=== PATIENT | female | born 1950 | race Caucasian/White ===

== ENCOUNTER 2016-07-29 10:33 | Emergency (ER) | payer MEDICARE, OTHER ==
[2016-07-29] MEDS ORDERED: Sodium Chloride 0.9% 10 ML Syringe FLUSH PRN (11:08)
[2016-07-29] MEDS ORDERED: HYDROmorphone 0.5 MG/0.5 ML Syringe IVPUSH ONE (11:10)
[2016-07-29] MEDS ORDERED: Ondansetron 4 MG/2 ML SDV IVPUSH ONE (11:10)
--- NOTE | 2016-07-29 11:13 | EDM.PDOC ---
ED HPI GI/ABDOMINAL - General Chief Complaint: Abdominal Pain Stated Complaint: ABDOMINAL PAIN Time Seen by Provider: 07/29/16 11:10 Source: Reports: Patient, Family, Old records, RN notes reviewed History Limitations: Reports: No limitations - History of Present Illness INITIAL COMMENTS - FREE TEXT/NARRATIVE: 66-year-old female presents emergency department with a complaint of abdominal pain, she states been ill for about 4 days has had fevers and chills pain is predominantly in the left lower quadrant she's never had a colonoscopy has had her gallbladder out still passing gas normal stool pattern denies blood in her stool no problems with urination. Was evaluated in the clinic yesterday urgent care felt to have a urinary tract infection started on ciprofloxacin cultures pending - Related Data Allergies/ADRs: Allergies Allergy/AdvReac Type Severity Reaction Status Date / Time No Known Allergies Allergy Verified 01/14/16 08:00 Home Meds: Home Meds Aspirin [Ecotrin] 81 mg PO DAILY 01/14/16 [History] Cholecalciferol (Vitamin D3) [Vitamin D3] 2,000 unit PO DAILY 01/14/16 [History] Cyanocobalamin (Vitamin B-12) [Vitamin B-12] 2,000 mcg PO DAILY 01/14/16 [ History] Losartan [Cozaar] 50 mg PO DAILY 01/14/16 [History] Susan-3 Fatty Acids/Fish Oil [Fish Oil 1,000 mg Softgel] 1 each PO DAILY [History] Dicyclomine [Bentyl] 20 mg PO QIDACANDBED #30 tablet 07/29/16 [Rx] metroNIDAZOLE [Flagyl] 500 mg PO Q8H #30 tab 07/29/16 [Rx] Past Medical History - Infectious Disease History Infectious Disease History: Reports: Chicken pox - Past Surgical History GI Surgical History: Reports: Cholecystectomy Dermatological Surgical History: Reports: Other (see below) Social & Family History - Tobacco Use Smoking Status *Q: Current Some Day Smoker Years of Tobacco use: 40 Packs/Tins Daily: 0.5 - Caffeine Use Caffeine Use: Reports: Coffee - Recreational Drug Use Recreational Drug Use: No ED ROS GENERAL - Review of Systems Review Of Systems: See Below Constitutional: Reports: fever, chills HEENT: Reports: No symptoms Respiratory: Reports: No Symptoms Cardiovascular: Reports: No symptoms GI/Abdominal: Reports: Abdominal pain, Flatus. Denies: Bloody stool, Diarrhea, Nausea, Vomiting : Reports: no symptoms Skin: Reports: no symptoms Neurological: Reports: No Symptoms ED EXAM, GI/ABD - Physical Exam Exam: See Below Text/Narrative:: General: Female, not in any distress, alert and oriented x3 HEENT: head is atraumatic normocephalic, eyes pupils equal round reactive to light, sclera clear no conjunctivitis appreciated. Ears tympanic membranes clear and navarrete landmarks and light reflex are present bilaterally canals are clear. Nose no septal deviation, nares are clear, no blood present. Mouth mucosa is moist and pink no erythema or exudate noted in soft palate, tongue is midline uvula is midline, dentition is intact. Neck: Supple no thyromegaly no tracheal deviation. Nodes: Cervical nodes subclavicular nodes nontender no palpable lymphadenopathy noted. Lungs: clear to auscultation bilaterally with symmetrical respirations, no adventitious noise appreciated. CV: Regular rate and rhythm S1 and S2 appreciated no murmurs rubs or gallops noted. Abdomen: Soft, tender to palpation left lower quadrant, no palpable masses or organomegaly appreciated, no distention no guarding bowel sounds are present, . Neuro: Cranial nerves II through XII grossly intact Skin: Warm and dry, intact Extremities: No lower extremity edema appreciated, pedal pulse is +2. Course - Vital Signs Last Recorded V/S: Last Vital Signs Temp 98.7 F 07/29/16 12:24 Pulse 76 07/29/16 12:24 Resp 15 07/29/16 12:24 BP 120/66 07/29/16 12:24 Pulse Ox 96 07/29/16 12:24 - Orders/Labs/Meds Orders: Active Orders 24 hr Category Date Time Status Peripheral IV Care [RC] . DIRECTED Care 07/29/16 11:09 Active Iopamidol [Isovue-300 (61%)] Med 07/29/16 11:18 Active 140 ml IV . DIRECTED PRN Sodium Chloride 0.9% [Normal Saline] 1,000 ml Med 07/29/16 11:15 Active IV ASDIRECTED Sodium Chloride 0.9% [Normal Saline] 85 ml Med 07/29/16 11:30 Active IV ASDIRECTED Sodium Chloride 0.9% [Saline Flush] Med 07/29/16 11:08 Active 10 ml FLUSH ASDIRECTED PRN Peripheral IV Insertion Adult [OM.PC] Urgent Oth 07/29/16 11:08 Ordered Medication Orders Sodium Chloride (Normal Saline) 1,000 mls @ 500 mls/hr IV ASDIRECTED MARLEN Last Admin: 07/29/16 11:22 Dose: 500 mls/hr Sodium Chloride (Normal Saline) 85 mls @ 3.5 mls/sec IV ASDIRECTED MARLEN Last Admin: 07/29/16 11:54 Dose: 3.5 mls/sec Iopamidol (Isovue-300 (61%)) 140 ml IV . DIRECTED PRN PRN Reason: RADIOLOGY EXAM Stop: 07/30/16 11:19 Last Admin: 07/29/16 11:54 Dose: 140 ml Sodium Chloride (Saline Flush) 10 ml FLUSH ASDIRECTED PRN PRN Reason: Keep Vein Open Last Admin: 07/29/16 11:21 Dose: 10 ml Labs: Laboratory Tests 07/29/16 07/29/16 07/29/16 Range/Units 11:18 11:18 11:18 WBC 17.8 H (4.5-11.0) K/uL RBC 4.01 (3.30-5.50) M/uL Hgb 12.3 (12.0-15.0) g/dL Hct 38.3 (36.0-48.0) % MCV 96 (80-98) fL MCH 31 (27-31) pg MCHC 32 (32-36) % Plt Count 372 (150-400) K/uL Neut % (Auto) 78 H (36-66) % Lymph % (Auto) 10 L (24-44) % [place] % (Auto) 11 H (2-6) % Eos % (Auto) 1 L (2-4) % Baso % (Auto) 1 (0-1) % Sodium 140 (140-148) mmol/L Potassium 3.8 (3.6-5.2) mmol/L Chloride 106 (100-108) mmol/L Carbon Dioxide 26 (21-32) mmol/L Anion Gap 8.1 (5.0-14.0) mmol/L BUN 10 (7-18) mg/dL Creatinine 0.8 (0.6-1.0) mg/dL Est Cr Clr Drug Dosing 62.24 mL/min Estimated GFR (MDRD) > 60 (>60) BUN/Creatinine Ratio Not Reportable Glucose 108 H (74-106) mg/dL Lactic Acid 1.3 (0.4-2.0) mmol/L Calcium 8.7 (8.5-10.1) mg/dL Total Bilirubin 0.7 (0.2-1.0) mg/dL AST 14 L (15-37) U/L ALT 29 (12-78) U/L Alkaline Phosphatase 104 (46-116) U/L Total Protein 7.8 (6.4-8.2) g/dL Albumin 2.8 L (3.4-5.0) g/dL Globulin 5.0 H (2.3-3.5) g/dL Albumin/Globulin Ratio 0.6 L (1.2-2.2) Lipase 87 (73-393) U/L Urine Color Urine Appearance Urine pH (4.5-8.0) Ur Specific [place] (1.008-1.030) Urine Protein (NEGATIVE) mg/dL Urine Glucose (UA) (NEGATIVE) mg/dL Urine Ketones (NEGATIVE) mg/dL Urine Occult Blood (NEGATIVE) Urine Nitrite (NEGATIVE) Urine Bilirubin (NEGATIVE) Urine Urobilinogen (NORMAL) mg/dL Ur Leukocyte Esterase (NEGATIVE) Urine RBC (0-5) Urine WBC (0-5) Ur Epithelial Cells Amorphous Sediment Urine Bacteria Urine Mucus 07/29/16 Range/Units 11:26 WBC (4.5-11.0) K/uL RBC (3.30-5.50) M/uL Hgb (12.0-15.0) g/dL Hct (36.0-48.0) % MCV (80-98) fL MCH (27-31) pg MCHC (32-36) % Plt Count (150-400) K/uL Neut % (Auto) (36-66) % Lymph % (Auto) (24-44) % [place] % (Auto) (2-6) % Eos % (Auto) (2-4) % Baso % (Auto) (0-1) % Sodium (140-148) mmol/L Potassium (3.6-5.2) mmol/L Chloride (100-108) mmol/L Carbon Dioxide (21-32) mmol/L Anion Gap (5.0-14.0) mmol/L BUN (7-18) mg/dL Creatinine (0.6-1.0) mg/dL Est Cr Clr Drug Dosing mL/min Estimated GFR (MDRD) (>60) BUN/Creatinine Ratio Glucose (74-106) mg/dL Lactic Acid (0.4-2.0) mmol/L Calcium (8.5-10.1) mg/dL Total Bilirubin (0.2-1.0) mg/dL AST (15-37) U/L ALT (12-78) U/L Alkaline Phosphatase (46-116) U/L Total Protein (6.4-8.2) g/dL Albumin (3.4-5.0) g/dL Globulin (2.3-3.5) g/dL Albumin/Globulin Ratio (1.2-2.2) Lipase (73-393) U/L Urine Color Yellow Urine Appearance Slightly cloudy Urine pH 5.0 (4.5-8.0) Ur Specific [place] 1.020 (1.008-1.030) Urine Protein Negative (NEGATIVE) mg/dL Urine Glucose (UA) Normal (NEGATIVE) mg/dL Urine Ketones Negative (NEGATIVE) mg/dL Urine Occult Blood Moderate (NEGATIVE) Urine Nitrite Negative (NEGATIVE) Urine Bilirubin Small (NEGATIVE) Urine Urobilinogen 1 (NORMAL) mg/dL Ur Leukocyte Esterase Negative (NEGATIVE) Urine RBC 5-10 H (0-5) Urine WBC 0-5 (0-5) Ur Epithelial Cells Many Amorphous Sediment Not seen Urine Bacteria Moderate Urine Mucus Moderate Meds: Medications Generic Name Dose Route Start Last Admin Trade Name Freq PRN Reason Stop Dose Admin Sodium Chloride 1,000 mls @ 500 mls/hr 07/29/16 11:15 07/29/16 11:22 Normal Saline IV 500 mls/hr ASDIRECTED MARLEN Administration Sodium Chloride 85 mls @ 3.5 mls/sec 07/29/16 11:30 07/29/16 11:54 Normal Saline IV 3.5 mls/sec ASDIRECTED MARLEN Administration Iopamidol 140 ml 07/29/16 11:18 07/29/16 11:54 Isovue-300 (61%) IV 07/30/16 11:19 140 ml . DIRECTED PRN Administration RADIOLOGY EXAM Sodium Chloride 10 ml 07/29/16 11:08 07/29/16 11:21 Saline Flush FLUSH 10 ml ASDIRECTED PRN Administration Keep Vein Open Discontinued Medications Generic Name Dose Route Start Last Admin Trade Name Swetha PRN Reason Stop Dose Admin Hydromorphone HCl 0.5 mg 07/29/16 11:10 07/29/16 11:18 Dilaudid IVPUSH 07/29/16 11:11 0.5 mg ONETIME ONE Administration Ondansetron HCl 4 mg 07/29/16 11:10 07/29/16 11:18 Zofran IVPUSH 07/29/16 11:11 4 mg ONETIME ONE Administration Sodium Chloride 10 ml 07/29/16 11:18 07/29/16 11:54 Saline Flush FLUSH 07/29/16 11:19 10 ml ONETIME ONE Administration Departure - Departure Time of Disposition: 13:21 Disposition: Home, Self-Care 01 Condition: good Clinical Impression: Diverticulitis Qualifiers: Diverticulitis site: large intestine Diverticulitis bleeding: without bleeding Diverticulitis complication: without perforation or abscess Qualified Code(s): K57.32 - Diverticulitis of large intestine without perforation or abscess without bleeding Prescriptions: Dicyclomine [Bentyl] 20 mg PO QIDACANDBED #30 tablet metroNIDAZOLE [Flagyl] 500 mg PO Q8H #30 tab Forms: ED Department Discharge Additional Instructions: Take full course of antibiotics, use the dicyclomine to help with the abdominal spasms. Please followup with your primary care provider in 3-5 days if not better, please call return to the emergency department with worsening of symptoms. - My Orders Last 24 Hours: My Active Orders 07/29/16 11:08 Sodium Chloride 0.9% [Saline Flush] 10 ml FLUSH ASDIRECTED PRN Peripheral IV Insertion Adult [OM.PC] Urgent 07/29/16 11:09 Peripheral IV Care [RC] . DIRECTED 07/29/16 11:15 Sodium Chloride 0.9% [Normal Saline] 1,000 ml IV ASDIRECTED 07/29/16 11:18 Iopamidol [Isovue-300 (61%)] 140 ml IV . DIRECTED PRN 07/29/16 11:30 Sodium Chloride 0.9% [Normal Saline] 85 ml IV ASDIRECTED - Assessment/Plan Last 24 Hours: My Active Orders 07/29/16 11:08 Sodium Chloride 0.9% [Saline Flush] 10 ml FLUSH ASDIRECTED PRN Peripheral IV Insertion Adult [OM.PC] Urgent 07/29/16 11:09 Peripheral IV Care [RC] . DIRECTED 07/29/16 11:15 Sodium Chloride 0.9% [Normal Saline] 1,000 ml IV ASDIRECTED 07/29/16 11:18 Iopamidol [Isovue-300 (61%)] 140 ml IV . DIRECTED PRN 07/29/16 11:30 Sodium Chloride 0.9% [Normal Saline] 85 ml IV ASDIRECTED Plan: Assessment Acuity = acute Site and laterality = diverticulitis Etiology = secondary to diverticular disease Manifestations = abdominal pain, fever Location of injury = home Lab values = WBC elevated at 17.8 consistent with leukocytosis, albumin low at 2.8 consistent hypoalbuminemia urinalysis reveals 5-[address] scan described diverticulitis about Plan She is currently taking ciprofloxacin will add metronidazole 500 mg Q8 hours x7 days in combination with dicyclomine help with the abdominal cramping, have her followup with her primary care in 3-5 days if no improvement Patient was in agreement with the plan all questions were answered, they were instructed to return to the emergency department or call for worsening symptoms. This note was dictated using [employer] voice recognition software please call with any questions.
[2016-07-29] MEDS ORDERED: Sodium Chloride 0.9% 1,000 ML IV SCH (11:15)
[2016-07-29] MEDS ORDERED: Iopamidol 612 MG/ML 150 ML Bottle IV PRN (11:18)
[2016-07-29] MEDS ORDERED: Sodium Chloride 0.9% 10 ML Syringe FLUSH ONE (11:18)
[2016-07-29 12:25] VITALS: BP 120/66
--- NOTE | 2016-07-29 13:14 | CT ---
Abdomen Pelvis w Cont HISTORY: LLQ pain Axial spiral enhanced CT scan of the abdomen and pelvis was obtained using IV contrast only. Coronal reconstructions were obtained. There are no prior exams for comparison. FINDINGS: Heart size is within normal limits. Lung bases are clear. No focal amount of the liver, sp dee, pancreas, adrenal glands, or kidneys is identified. Gallbladder is surgically absent. There is no biliary duct dilatation. Multiple diverticuli are seen in the descending and sigmoid colon. There is colon wall thickening an d pericolonic fat stranding proximal sigmoid colon along with enhancement of a diverticulum. Finding s are suspicious for acute diverticulitis. Underlying malignancy is not excluded. There is a small a mount of fluid adjacent to the proximal sigmoid colon. Perforation or organized abscess are not seen . Follow-up is recommended. No other colon abnormality is seen. Small bowel loops are nondistended. I see no pelvic, retroperito samantha, or mesenteric adenopathy. Minimal free fluid can be seen in the lower pelvis. IMPRESSION: Probable acute diverticulitis proximal sigmoid colon as described above. Underlying abby gnancy cannot be excluded. There is a small amount of fluid adjacent to the proximal sigmoid colon. I see no perforation or organized abscess at this time. Recommend clinical correlation and follow-up . Findings were discussed with Dr. Hardingr in the Emergency Department at 1300 hours. Total DLP 1380 mGycm
[2016-07-29] MEDS ORDERED: HYDROmorphone 1 MG/ML Syringe IVPUSH ONE (13:24)
== END 2016-07-29 14:00 | disposition home or self-care (01) ==
LOC: JP.ED 10:33
DX: K57.32 Diverticulitis of large intestine without perforation or abscess without bleeding (principal); F17.210 Nicotine dependence, cigarettes, uncomplicated; Z79.82 Long term (current) use of aspirin; Z79.899 Other long term (current) drug therapy; Z90.49 Acquired absence of other specified parts of digestive tract
CPT/HCPCS: 36415; 74177; 80053; 81001; 83605; 83690; 85025; 96361; 96374; 96375; 99284; J1170; J2405; J7030; J7040; J7050

== ENCOUNTER 2016-08-19 08:26 | Day surgery (SDC) | payer MEDICARE, OTHER ==
[2016-08-19] MEDS ORDERED: fentaNYL 100 MCG/2 ML SDV ONE (10:59)
[2016-08-19] MEDS ORDERED: Midazolam 1 MG/ML 2 ML SDV ONE (10:59)
[2016-08-19] MEDS ORDERED: Propofol 200 MG/20 ML SDV ONE (10:59)
[2016-08-19] MEDS ORDERED: Lactated Ringers 1,000 ML IV SCH (11:30)
[2016-08-19] MEDS ORDERED: Glucagon,Human Recombinant 1 MG Vial ONE (12:27)
[2016-08-19 14:04] VITALS: BP 161/94
--- NOTE | 2016-08-20 07:39 | OR ---
DATE OF PROCEDURE: 08/19/2016 PREOPERATIVE DIAGNOSIS: Colon cancer screening, recent diverticulitis. POSTOPERATIVE DIAGNOSIS: Diverticulosis, small right colon polyp, recent diverticulitis. PROCEDURE: Colonoscopy to the cecum with biopsy resection of right colon polyp. ANESTHESIA: IV anesthesia with monitored anesthesia care. INDICATIONS: This 66-year-old white female is referred for a colonoscopy. She has never had a colonoscopic exam. She does have a recent episode of what is thought to have been diverticulitis, this is all resolved. I counseled her for a colonoscopy with possible biopsy and/or polypectomy including risks and alternatives, and she gave her informed consent to proceed. DESCRIPTION OF PROCEDURE: The patient was placed in the left lateral decubitus position. IV anesthesia was administered by the Anesthesia Service. Time-out was held. A rectal exam was performed, which was unremarkable. The flexible video Olympus colonoscope was introduced through her anus, up her rectum, and out her colon all way to the cecum. There was a lot of spasm of in the sigmoid and left colon areas. We did give the patient IV glucagon. En route to the cecum in the right colon, we saw a small polyp which was removed with multiple bites of the biopsy forceps. There was also a lot of spasm in the left and sigmoid colon area. After the cecum was reached, the scope was slowly withdrawn examining the mucosa throughout. No additional mucosal abnormalities were noted. The scope was retroflexed in rectum with the distal rectum appearing unremarkable. The scope was straightened and removed. She tolerated the procedure well. Cedric Acosta MD /[id number] [facility]DPeters[facility]
== END 2016-08-19 14:21 | disposition home or self-care (01) ==
LOC: JP.SDS 08:26
PROVIDERS: ATTEND Surgery
PROC: 0DBK8ZX Excision of Ascending Colon, Via Natural or Artificial Opening Endoscopic, Diagnostic (ICD-10-PCS; principal; 2016-08-19)
DX: Z12.11 Encounter for screening for malignant neoplasm of colon (principal); D12.2 Benign neoplasm of ascending colon; K57.30 Diverticulosis of large intestine without perforation or abscess without bleeding
CPT/HCPCS: 45380; J1610; J2250; J2704; J3010; 88305

== ENCOUNTER 2017-10-28 12:43 | Inpatient (IN) | payer MEDICARE, OTHER ==
[2017-10-28] MEDS ORDERED: Sodium Chloride 0.9% 10 ML Syringe FLUSH PRN ×3 (13:21→18:09)
[2017-10-28] MEDS ORDERED: Iopamidol 612 MG/ML 150 ML Bottle IV SCH (13:30)
--- NOTE | 2017-10-28 14:44 | CT ---
Abdomen Pelvis w Cont INDICATION: diverticulitis TECHNIQUE: CT images of the abdomen and pelvis performed. Coronal reformatted images obtained. IV contrast only Dosage reduction and iterative reconstruction techniques employed. COMPARISON: CT 07/29/2016 FINDINGS: 5.7 x 5.5 x 4.0 cm peridiverticular abscess containing fluid, a few air bubbles, an enha ncing rim adjacent to the sigmoid colon and abutting the posterior aspect of the anterior flexed uter us. Also small amount of fluid adjacent to the left ovary which could also be related to infection. D iverticulosis in the remainder of the colon but no other evidence of diverticulitis. No free air. Fat ty infiltration of the liver. Gallbladder surgically absent. Spleen, pancreas, adrenal glands, and ki dneys unremarkable. Ureters and urinary bladder clear. No ascites. Abdominal aorta normal caliber. De generative change in the spine. IMPRESSION: Well-developed 5.7 cm sigmoid peridiverticular abscess. Due to its deep location with overlying structures, this is not amenable to CT-guided percutaneous drainage.
--- NOTE | 2017-10-28 15:16 | EDM.PDOC ---
ED HPI GENERAL MEDICAL PROBLEM - General Chief Complaint: Abdominal Pain Stated Complaint: ABD PAIN Time Seen by Provider: 10/28/17 13:15 Source of Information: Reports: Patient History Limitations: Reports: No Limitations - History of Present Illness INITIAL COMMENTS - FREE TEXT/NARRATIVE: Lower abd pain for 4 days just like when she had diverticulitis previously. No fever. No vomiting or diarrhea. lower abdomen Pain Score (Numeric/FACES): 5 - Related Data Allergies Allergy/AdvReac Type Severity Reaction Status Date / Time No Known Allergies Allergy Verified 10/28/17 12:58 Home Meds: Home Meds Cholecalciferol (Vitamin D3) [Vitamin D3] 2,000 unit PO DAILY 01/14/16 [History] Cyanocobalamin (Vitamin B-12) [Vitamin B-12] 2,000 mcg PO DAILY 01/14/16 [ History] Losartan [Cozaar] 50 mg PO DAILY 01/14/16 [History] [place]-3 Fatty Acids/Fish Oil [Fish Oil 1,000 mg Softgel] 1 each PO DAILY [History] Past Medical History Cardiovascular History: Reports: Hypertension Gastrointestinal History: Reports: Diverticulosis [employer] History: Reports: Musculoskeletal History: Reports: Back Pain, Chronic Dermatologic History: Reports: None - Infectious Disease History Infectious Disease History: Reports: None - Past Surgical History Cardiovascular Surgical History: Reports: None GI Surgical History: Reports: Cholecystectomy Social & Family History - Tobacco Use Smoking Status *Q: Never Smoker - Caffeine Use Caffeine Use: Reports: Coffee - Recreational Drug Use Recreational Drug Use: No ED ROS GENERAL - Review of Systems Review Of Systems: ROS reveals no pertinent complaints other than HPI. ED EXAM, GI/ABD - Physical Exam Exam: See Below Exam Limited By: Uncooperative General Appearance: WD/WN, No Apparent Distress Eyes: Bilateral: Normal Appearance Throat/Mouth: Normal Oropharynx Respiratory/Chest: Lungs Clear Cardiovascular: Regular Rate, Rhythm GI/Abdominal Exam: Normal Bowel Sounds, Soft, Tender (moderate LLQ tend) Extremities: Normal Inspection Neurological: Alert, Oriented Course - Vital Signs Last Recorded V/S: Last Vital Signs Temp 36.4 C 10/28/17 12:55 Pulse 80 10/28/17 14:44 Resp 12 10/28/17 14:44 BP 144/69 H 10/28/17 14:44 Pulse Ox 98 10/28/17 14:44 - Orders/Labs/Meds Orders: Active Orders 24 hr Category Date Time Status UA W/MICROSCOPIC [URIN] Urgent Lab 10/28/17 13:44 Ordered Iopamidol [Isovue-300 (61%)] Med 10/28/17 13:30 Active 144 ml IV . DIRECTED Sodium Chloride 0.9% [Saline Flush] Med 10/28/17 13:21 Active 10 ml FLUSH ASDIRECTED PRN Sodium Chloride 0.9% [Saline Flush] Med 10/28/17 13:25 Active 10 ml FLUSH ONETIME PRN Saline Lock Insert [OM.PC] Urgent Oth 10/28/17 13:20 Ordered Medication Orders Iopamidol (Isovue-300 (61%)) 144 ml IV . DIRECTED MARLEN Last Admin: 10/28/17 14:14 Dose: 144 ml Sodium Chloride (Saline Flush) 10 ml FLUSH ASDIRECTED PRN PRN Reason: Keep Vein Open Sodium Chloride (Saline Flush) 10 ml FLUSH ONETIME PRN PRN Reason: PER RADIOLOGY PROTOCOL Labs: Laboratory Tests 10/28/17 10/28/17 10/28/17 Range/Units 13:30 13:30 13:44 WBC 15.4 H (4.5-11.0) K/uL RBC 4.23 (3.30-5.50) M/uL Hgb 13.2 (12.0-15.0) g/dL Hct 40.3 (36.0-48.0) % MCV 95 (80-98) fL MCH 31 (27-31) pg MCHC 33 (32-36) % Plt Count 360 (150-400) K/uL Neut % (Auto) 74 H (36-66) % Lymph % (Auto) 16 L (24-44) % [place] % (Auto) 8 H (2-6) % Eos % (Auto) 1 L (2-4) % Baso % (Auto) 0 (0-1) % Sodium 141 (140-148) mmol/L Potassium 3.6 (3.6-5.2) mmol/L Chloride 106 (100-108) mmol/L Carbon Dioxide 28 (21-32) mmol/L Anion Gap 7.5 (5.0-14.0) mmol/L BUN 12 (7-18) mg/dL Creatinine 0.9 (0.6-1.0) mg/dL Est Cr Clr Drug Dosing 52.38 mL/min Estimated GFR (MDRD) > 60 (>60) Glucose 119 H (74-106) mg/dL Calcium 8.6 (8.5-10.1) mg/dL Total Bilirubin 0.8 (0.2-1.0) mg/dL AST 21 (15-37) U/L ALT 29 (12-78) U/L Alkaline Phosphatase 109 (46-116) U/L Total Protein 7.0 (6.4-8.2) g/dL Albumin 2.7 L (3.4-5.0) g/dL Globulin 4.3 H (2.3-3.5) g/dL Albumin/Globulin Ratio 0.6 L (1.2-2.2) Urine Color Yellow Urine Appearance Cloudy Urine pH 5.0 (4.5-8.0) Ur Specific [place] 1.020 (1.008-1.030) Urine Protein Trace (NEGATIVE) mg/dL Urine Glucose (UA) Normal (NEGATIVE) mg/dL Urine Ketones Negative (NEGATIVE) mg/dL Urine Occult Blood Moderate (NEGATIVE) Urine Nitrite Negative (NEGATIVE) Urine Bilirubin Small (NEGATIVE) Urine Urobilinogen 4 (NORMAL) mg/dL Ur Leukocyte Esterase Small (NEGATIVE) Urine RBC 0-5 (0-5) Urine WBC 0-5 (0-5) Ur Epithelial Cells Moderate Amorphous Sediment Not seen Urine Bacteria Moderate Urine Mucus Not seen Meds: Medications Generic Name Dose Route Start Last Admin Trade Name Freq PRN Reason Stop Dose Admin Iopamidol 144 ml 10/28/17 13:30 10/28/17 14:14 Isovue-300 (61%) IV 144 ml . DIRECTED MARLEN Administration Sodium Chloride 10 ml 10/28/17 13:21 Saline Flush FLUSH ASDIRECTED PRN Keep Vein Open Sodium Chloride 10 ml 10/28/17 13:25 Saline Flush FLUSH ONETIME PRN PER RADIOLOGY PROTOCOL Discontinued Medications Generic Name Dose Route Start Last Admin Trade Name Freq PRN Reason Stop Dose Admin Sodium Chloride 84 mls @ 3 mls/sec 10/28/17 13:25 10/28/17 14:14 Normal Saline IV 10/28/17 13:26 3 mls/sec ONETIME ONE Administration - Radiology Interpretation Free Text/Narrative:: CT shows 5 cm peridiverticular abscess in lower abd. Too deep for CT guided needle asp - Re-Assessments/Exams Free Text/Narrative Re-Assessment/Exam: 10/28/17 15:16 Dr Salvador lugo see. Departure - Discharge Information Referrals: Eloise Carcamo MD [Primary Care Provider] - - My Orders Last 24 Hours: My Active Orders 10/28/17 13:20 Saline Lock Insert [OM.PC] Urgent 10/28/17 13:21 Sodium Chloride 0.9% [Saline Flush] 10 ml FLUSH ASDIRECTED PRN 10/28/17 13:25 Sodium Chloride 0.9% [Saline Flush] 10 ml FLUSH ONETIME PRN 10/28/17 13:30 Iopamidol [Isovue-300 (61%)] 144 ml IV . DIRECTED 10/28/17 13:44 UA W/MICROSCOPIC [URIN] Urgent - Assessment/Plan Last 24 Hours: My Active Orders 10/28/17 13:20 Saline Lock Insert [OM.PC] Urgent 10/28/17 13:21 Sodium Chloride 0.9% [Saline Flush] 10 ml FLUSH ASDIRECTED PRN 10/28/17 13:25 Sodium Chloride 0.9% [Saline Flush] 10 ml FLUSH ONETIME PRN 10/28/17 13:30 Iopamidol [Isovue-300 (61%)] 144 ml IV . DIRECTED 10/28/17 13:44 UA W/MICROSCOPIC [URIN] Urgent
[2017-10-28] MEDS ORDERED: diphenhydrAMINE 50 MG/ML SDV IVPUSH PRN (18:10)
[2017-10-28] MEDS ORDERED: hydrOXYzine HCl 100 MG/2 ML SDV IM PRN (18:10)
[2017-10-28] MEDS ORDERED: Ondansetron 4 MG/2 ML SDV IVPUSH PRN (18:10)
[2017-10-28] MEDS ORDERED: fentaNYL 100 MCG/2 ML SDV IVPUSH PRN (18:10)
[2017-10-28] MEDS ORDERED: Promethazine 25 MG/ML SDV IM PRN (18:10)
[2017-10-28] MEDS ORDERED: Benzocaine/Cetylpyridinium/Menthol Lozenge MUCMEM PRN ×2 (18:10→20:06)
[2017-10-28] MEDS ORDERED: Dextrose 5%-Lactated Ringers 1,000 ML IV SCH (18:15)
[2017-10-28] MEDS ORDERED: Piperacillin/Tazobactam 4.5 GM in Sodium Chloride 0.9% 100 ML IV SCH (18:30)
[2017-10-28] MEDS: Acetaminophen 325 MG Tab PO PRN (22:13)
[2017-10-28] MEDS: Piperacillin/Tazobactam 4.5 GM in Sodium Chloride 0.9% 100 ML IV SCH (22:15)
[2017-10-29] MEDS: Piperacillin/Tazobactam 4.5 GM in Sodium Chloride 0.9% 100 ML IV SCH (03:30)
[2017-10-29] MEDS ORDERED: Albuterol/Ipratropium 3.0-0.5 MG/3 ML Neb Soln NEB ONE (07:22)
[2017-10-29] MEDS ORDERED: Neostigmine Methylsulfate 1 MG/ML 5 ML Syringe ONE (07:25)
[2017-10-29] MEDS ORDERED: fentaNYL 250 MCG/5 ML SDV ONE (07:25)
[2017-10-29] MEDS ORDERED: Dexamethasone 4 MG/ML SDV ONE (07:25)
[2017-10-29] MEDS ORDERED: Glycopyrrolate 0.2 MG/ML 5 ML MDV ONE (07:25)
[2017-10-29] MEDS ORDERED: Propofol 200 MG/20 ML SDV ONE (07:25)
[2017-10-29] MEDS ORDERED: Albuterol/Ipratropium 3.0-0.5 MG/3 ML Neb Soln ONE (07:25)
[2017-10-29] MEDS ORDERED: Ondansetron 4 MG/2 ML SDV ONE (07:25)
[2017-10-29] MEDS ORDERED: Rocuronium 50 MG/5 ML Vial ONE ×2 (07:25→10:33)
[2017-10-29] MEDS ORDERED: Succinylcholine 200 MG/10 ML MDV ONE (07:25)
[2017-10-29] MEDS ORDERED: Naloxone 0.4 MG/ML SDV IVPUSH PRN (08:12)
--- NOTE | 2017-10-29 09:02 | CONS ---
DATE OF SERVICE: 10/28/2017 CONSULTING PHYSICIAN: Capo Franco MD REASON FOR CONSULTATION: From Dr. Delgado abdominal pain. HISTORY OF PRESENT ILLNESS: This is a 67-year-old female who has a 4-day history of pain. This is similar to her previous diverticulitis attacks. She has no fever, no vomiting, or diarrhea. The patient did have a colonoscopy on August 19, 2016. PAST MEDICAL HISTORY: History of cholecystectomy, chronic back pain, hypertension, diverticulosis, and . PAST SURGICAL HISTORY: Laparoscopic cholecystectomy. SOCIAL HISTORY: She does not smoke. FAMILY HISTORY: No family history of colorectal cancer. REVIEW OF SYSTEMS: GENERAL: The patient is resting quite comfortably and has no concerns. HEENT: No symptoms. CARDIOVASCULAR: No history of myocardial infarction. RESPIRATORY: No shortness of breath. The patient can ambulate long distances. GASTROINTESTINAL: As above. GENITOURINARY: No abnormalities. MUSCULOSKELETAL: Back pain. The remainder of review of systems is reviewed and is negative. PHYSICAL EXAMINATION: VITAL SIGNS: Temperature 97.7, blood pressure 146/72, pulse 81, respirations 12, 99% on room air. HEENT: Pupils are equal. NECK: Supple. LUNGS: Clear. CARDIOVASCULAR: Regular rhythm and rate. RESPIRATORY: Lungs are clear to consultation bilaterally. ABDOMEN: Bowel sounds are positive. Essentially, no pain with palpation. NEUROLOGICAL: Oriented x3. PSYCH: No gross depression. LABORATORY DATA: Show white blood cell count of 15 and creatinine 0.9. IMAGING: I did review the CT scan, which shows a 5.7 sigmoid diverticular abscess. Not amenable to percutaneous drainage. ASSESSMENT: Diverticular abscess. PLAN: The patient and I had a long discussion with our options. Obviously, this one does not include diverticular abscess drainage. However, most likely this will involve a sigmoid colon resection, possibly an ostomy. The patient and I had a discussion about the timing of the procedure and she was concerned about the staff being fatigued at this time of night. Therefore, as the patient is resting very comfortably and has essentially no symptoms, I think we will respect her wishes to have the procedure performed in the morning with a new operating room crew, which is more rested. We discussed risks, benefits, alternatives, and limitations of both these plans. We discussed the surgical plan and again the risks of delay. However, I do understand the patient's concerns and we will start first thing in the morning. We also discussed the role of ostomy, open surgery laparoscopic, although this is not amenable to laparoscopic surgery due to the complexity and her obesity and we also discussed the risks of leaks, drains, abscesses, recurrent surgery, and other risks not listed here. The patient understands all these risks and wishes to proceed. Capo Franco MD /[id number]
[2017-10-29] MEDS ORDERED: Piperacillin/Tazobactam/Dext 4.5 GM in Premix Bag 1 BAG IV SCH (10:00)
[2017-10-29] MEDS ORDERED: Lactated Ringers 1,000 ML ONE ×2 (10:49)
[2017-10-29] MEDS ORDERED: Albuterol/Ipratropium 3.0-0.5 MG/3 ML Neb Soln INH PRN (12:54)
[2017-10-29] MEDS ORDERED: Zolpidem 5 MG Tab PO PRN (13:19)
[2017-10-29] MEDS: Scopolamine 1.5 MG Transdermal Patch TRDERM SCH (13:33)
[2017-10-29] MEDS: Sodium Chloride 0.9% 1,000 ML IV SCH (13:34)
[2017-10-29] MEDS: Metoclopramide 10 MG/2 ML SDV IV PRN (14:03)
[2017-10-29] MEDS: fentaNYL 2,500 MCG in Sodium Chloride 0.9% 200 ML EPIDUR SCH (14:10)
[2017-10-29] MEDS: Piperacillin/Tazobactam/Dext 4.5 GM in Premix Bag 1 BAG IV SCH ×2 (14:13→21:42)
[2017-10-30] MEDS: Sodium Chloride 0.9% 1,000 ML IV SCH (01:34)
[2017-10-30] MEDS: Piperacillin/Tazobactam/Dext 4.5 GM in Premix Bag 1 BAG IV SCH ×4 (01:58→20:14)
[2017-10-30] MEDS: fentaNYL 2,500 MCG in Sodium Chloride 0.9% 200 ML EPIDUR SCH (05:39)
[2017-10-30] MEDS ORDERED: Dextrose 5%-Lactated Ringers 1,000 ML IV SCH (08:15)
[2017-10-30] MEDS: Sennosides 8.6 MG Tab PO SCH ×2 (10:07→20:12)
[2017-10-30] MEDS: Pantoprazole 40 MG Tab.CR PO SCH ×2 (10:08→11:09)
[2017-10-30] MEDS: Bisacodyl 5 MG Tab PO SCH ×2 (10:08→20:14)
[2017-10-30] MEDS: Ibuprofen 600 MG Tab PO SCH ×2 (10:08→17:26)
[2017-10-30] MEDS: traMADol 50 MG Tab PO SCH ×3 (10:08→20:12)
[2017-10-30] MEDS: SCOPOLAMINE PATCH CHECK TOP SCH (10:09)
--- NOTE | 2017-10-30 11:15 | PN ---
DATE OF SERVICE: 10/30/2017 SUBJECTIVE: The patient is doing well. Pain is well-controlled. No nausea, vomiting, shortness of breath, or chest pain. No ostomy output yet. Her pain at rest is described is 0 to 1 out of 10. Her nausea is completely gone. She has been drinking some liquids and had been ambulating once. OBJECTIVE: VITAL SIGNS: Temperature 96.7, blood pressure 151/70, pulse 85, respirations 20, and 94% on room air. CARDIOVASCULAR: Regular rhythm and rate. RESPIRATORY: Lungs clear to auscultation bilaterally. ABDOMEN: Bowel sounds positive, minimal. Dressings intact. Ostomy, no output. LABORATORY RESULTS: Show a typical hemoglobin and normal creatinine. ASSESSMENT: Status post sigmoid colon resection. PLAN: 1. Activity: She is to ambulate t.i.d. today. 2. Diet: A full liquid diet, we will advance today if she tolerates this. 3. Pain control. Continue epidural. We will start tramadol and ibuprofen. 4. Prophylaxis. The patient is started on Lovenox and proton pump inhibitor. In addition, incentive spirometry has been instructed to be started by the nurses and SCDs are also present. DISPOSITION: Unknown at this time, but estimated discharge in approximately 72 hours. COMPLICATIONS: None noted at this time. Capo Franco MD /[id number]
[2017-10-30] MEDS ORDERED: Enoxaparin 40 MG/0.4 ML Syringe SUBCUT SCH (13:00)
[2017-10-31] MEDS: Metoclopramide 10 MG/2 ML SDV IV PRN ×3 (00:06→18:00)
[2017-10-31] MEDS: Ibuprofen 600 MG Tab PO SCH ×3 (00:07→16:41)
[2017-10-31] MEDS: fentaNYL 2,500 MCG in Sodium Chloride 0.9% 200 ML EPIDUR SCH (02:29)
[2017-10-31] MEDS: traMADol 50 MG Tab PO SCH ×4 (02:40→20:30)
[2017-10-31] MEDS: Piperacillin/Tazobactam/Dext 4.5 GM in Premix Bag 1 BAG IV SCH ×2 (02:42→08:15)
[2017-10-31] MEDS ORDERED: Dextrose 5%-Lactated Ringers 1,000 ML IV SCH (07:30)
[2017-10-31] MEDS: Bisacodyl 5 MG Tab PO SCH ×2 (08:07→20:30)
[2017-10-31] MEDS: Sennosides 8.6 MG Tab PO SCH ×2 (08:07→20:30)
[2017-10-31] MEDS: Pantoprazole 40 MG Tab.CR PO SCH (08:07)
[2017-10-31] MEDS: SCOPOLAMINE PATCH CHECK TOP SCH (08:18)
[2017-10-31] MEDS: Ondansetron 4 MG Tab.DIS PO PRN ×3 (08:44→18:00)
[2017-10-31] MEDS: Dextrose 5%-Lactated Ringers 1,000 ML IV SCH ×2 (08:44→16:43)
[2017-10-31] MEDS ORDERED: Acetaminophen/HYDROcodone 325-5 MG Tab PO PRN (10:50)
[2017-10-31] MEDS: Levofloxacin/Dextrose 5%-Water 500 MG in Premix Bag 1 BAG IV SCH (11:22)
[2017-10-31] MEDS: Losartan 50 MG Tab PO SCH (11:24)
--- NOTE | 2017-10-31 13:46 | PN ---
DATE OF SERVICE: 10/31/2017 SUBJECTIVE: The patient is doing well today. Pain is well controlled. No nausea, vomiting, shortness of breath, or chest pain. Ostomy output is starting with some gas and stool. Of note, the patient did have 1 single episode, where she coughed and vomited this morning. However, this may be artifactual as she has had no GI concerns at this time for several hours. OBJECTIVE: VITAL SIGNS: Stable. She is afebrile. CARDIOVASCULAR: Regular rhythm and rate. RESPIRATORY: Lungs are clear to auscultation bilaterally. ABDOMEN: Ostomy shows some output of stool and gas. Drain is serosanguineous. IMAGING: I did review the KUB and the tertiary evaluation did not show any specific concerning patterns, we are awaiting the official results. ASSESSMENT: Status post sigmoid and small bowel resection. PLAN: The patient will continue on through the enhanced recovery after surgery protocols, which include stopping the epidural, p.o. pain medications, continued aggressive ambulation. In addition, we will change her antibiotics to levofloxacin as this is more sensitive, and discontinue Invanz. Continue with discharge planning. Capo Franco MD /[id number]
[2017-11-01] MEDS: Ibuprofen 600 MG Tab PO SCH ×3 (00:01→17:34)
[2017-11-01] MEDS: Dextrose 5%-Lactated Ringers 1,000 ML IV SCH (00:48)
[2017-11-01] MEDS: traMADol 50 MG Tab PO SCH ×3 (03:18→16:19)
[2017-11-01] MEDS ORDERED: Lidocaine 1% with EPINEPHrine 1:100,000 50 ML MDV ONE (07:04)
[2017-11-01] MEDS ORDERED: Bupivacaine 0.5% 50 ML MDV ONE (07:04)
[2017-11-01] MEDS ORDERED: fentaNYL 100 MCG/2 ML SDV ONE (07:11)
[2017-11-01] MEDS ORDERED: Midazolam 1 MG/ML 2 ML SDV ONE (07:11)
[2017-11-01] MEDS ORDERED: Propofol 200 MG/20 ML SDV ONE (07:11)
[2017-11-01] MEDS ORDERED: Ropivacaine 48 ML, Dexamethasone 8 MG, EPINEPHrine 0.4 MG, Sodium Chloride 0.9% 29.6 ML NERVRT SCH ×4 (07:45)
[2017-11-01] MEDS ORDERED: Lactated Ringers 1,000 ML ONE (08:29)
--- NOTE | 2017-11-01 09:01 | CR ---
Abdomen 1V Flat CLINICAL HISTORY: Nausea FINDINGS: The bowel gas pattern is nonobstructive. No abnormal masses are noted. There is a surgical drain in the right low abdomen. There is an ostomy site in the left the lower quadrant. IMPRESSION: Nonacute intestinal gas pattern Postoperative changes
[2017-11-01] MEDS: Pantoprazole 40 MG Tab.CR PO SCH (09:38)
[2017-11-01] MEDS: Losartan 50 MG Tab PO SCH (09:48)
[2017-11-01] MEDS: SCOPOLAMINE PATCH CHECK TOP SCH (09:49)
[2017-11-01] MEDS: Bisacodyl 5 MG Tab PO SCH ×2 (09:49→23:04)
[2017-11-01] MEDS: Sennosides 8.6 MG Tab PO SCH ×2 (09:50→23:04)
--- NOTE | 2017-11-01 10:02 | OR ---
DATE OF PROCEDURE: 11/01/2017 PROCEDURE: Delayed primary closure. FINDINGS: Well-healing subcutaneous tissues without evidence of infection or complication. COMPLICATION: None. SUPERINTENDENT GENERAL: None. ANESTHESIA: TAP/local. RISKS: Risks, benefits, alternatives, and limitations including, but not limited to infection, bleeding, perforation, and requirement for reexploration were explained to the patient, who wished to proceed. DESCRIPTION OF PROCEDURE: The patient was placed in the supine position. The abdomen was prepped and draped with Betadine. This was then thoroughly irrigated with 1 L of irrigation. Subcutaneous tissues were approximated. Skin was closed with jen. Aquacel Ag dressing was applied. The patient tolerated the procedure well. Capo Franco MD /[id number]
--- NOTE | 2017-11-01 10:08 | OR ---
DATE OF PROCEDURE: 10/29/2017 PROCEDURES: 1. Colon resection with anastomosis, primary, sigmoid colon, (80630). 2. Resection of small bowel, distal ileum, (28220). 3. Mobilization of splenic flexure, (84244). 4. Drainage of peritoneal abscess, left lower abdomen/pelvis, (48570). 5. Resection of distal sigmoid colon, (30732), separate specimen. 6. Wound VAC placement, (51228). FINDINGS: 1. Diverticular abscess located in sigmoid colon, left side, Hinchey class II/ III. 2. Large probable Meckel's with associated nodularity of the distal ileum. 3. Very localized peritonitis/abscess, left abdomen. SPECIMENS: 1. Sigmoid colon. 2. Distal sigmoid colon. 3. Ileum. 4. Cultures, peritonitis/abscess. Performance Improvement Consultant:Dr. Cedric Acosta RISKS: Risks, benefits, alternatives, and limitations including, but not limited to infection, bleeding, and perforation were explained to the patient. Also discussed preoperatively the typical treatment courses which include evaluation using Hinchey class staging 1 primary anastomosis versus anastomosis with protective ileostomy versus Amaury's procedure. The patient understands these risks and wishes to proceed. We also discussed the role of the ostomy, anastomotic failure, septic shock, the requirement for additional re- operations, delayed primary closures, and the role of epidural, the risks of epidural, and other risks not listed here. PROCEDURE IN DETAIL: With the patient in supine position, a midline abdominal incision was made, this was carried down with the Zeny to the abdomen. The abdomen was then inspected, and the patient was noted to have dense inflammatory area in her sigmoid colon, probably leading to constipation/obstipation. This was done in a traditional fashion with respect to sigmoid colon, diverticular pattern. The proximal sigmoid was transected clear of gross disease. This was transected using a bacon-load stapler. Mesentery was transected with a white load. During this process, moving in the distal fashion, the patient was noted to have very mild peritonitis. There was no gross nigel stool. The abscess was subsequently encountered, cultured, irrigated, and suctioned clean. Of note, a total of approximately 6 to 8 L of irrigation would be used during this entire procedure at multiple stages and locations. Mobilization of splenic flexure continued and, eventually, using bacon load, the mesentery was able to be transected. As this was not a malignancy case, as the patient recently had a colonoscopy, careful attention was needed to keep the majority of the vascular arcade during this procedure (keeping close to the bowel rather than harvesting lymph nodes). As this continued, eventually, a distal line with minimal gross disease was encountered. This was transected with black-load staplers x2. A curved Contour stapler was attempted to be used, but due to technical difficulties, this was not able to be used. Once this was transected, this was sent with a single stitch superior placed for a sigmoid colon specimen. Mobilization was then continued off the spleen and associated splenic flexure. The patient had a rather large amount of abdominal peritoneum mesenteric fat making the mobilization difficult. Eventually, this was mobilized off the splenic flexure to the right side of the transverse colon. This would allow a tension-free anastomosis. Remnant of the sigmoid colon was then inspected. There were some areas of questionable vascularity, therefore, this distal sigmoid colon was also resected using a purple-load stapler and was sent for specimen called distal sigmoid colon. Once this was resected, the anastomosis was then commenced. The EEA anastomotic stapler would be used, and this would be a 25, which would be appropriately sized as the patient did have a small colon and probably due to ongoing scarring through the years. In the proximal aspect, a defect was created, and the anvil was inserted. Electrocautery was used to produce the meeting end of the anvil through without difficulty. A bacon-load stapler was also used at this point to close the defect associated with the anvil. Once this was in place, the colon was mobilized down in the left gutter at the previous area of sigmoid colon and tension-free anastomosis was again verified. The EEA stapler was then introduced after colonoscope was performed; however, no masses were noted. At this point, Dr. Acosta assisted with the critical aspect of the procedure, specifically creating the anastomosis. The anvil was able to be merged with the EEA stapler. This was fired without difficulty. The staple was removed, and this was inspected, two donuts were noted complete. Once this was completed, the abdomen was filled with water and a colonoscope well for a bubble test was performed. No air was noted, and the anastomosis was without abnormality. Gown and gloves were then changed again. The anastomosis was inspected. The patient did have a very tortuous remnant of the sigmoid colon with prominent valve of Fernandes 100% anastomosis, which supposed to be very good. This was inspected internally and externally. The liquid was removed. A 10 flat Brad-Hernandez drain was placed in the area of the peritonitis. At this point, the decision point between ostomy and knot was calibrated. The patient is technically a II and maybe an early III class. However, due to the challenging anastomosis, the patient's body habitus, the safest choice would be to create a loop ileostomy at that time. The loop ileostomy was then performed by creating a defect in the skin, muscle spreading allowing three fingers past the abdominal wall and allowing the small bowel to be pulled through. However, the area originally chose for the loop ileostomy was noted to have a probable Meckel's diverticulum with several studs noted on this. This is probably part of the diverticular development process; however, this was concerning for malignancy or a defect in the bowel. Therefore, it was decided to resect this portion along with a small area of mesenteric bleeding and sent as a specimen. This was resected by using a [id number] functional and end-to-end anastomosis. This was performed by transecting with a bacon-load stapler x2, to create the two ends and then bacon loads to resect the mesentery. A single vita was made in each of the antimesenteric sites after a Vicryl stitch was placed, 3-0. Once this was completed, the bacon-load stapler was inserted and fired. Allis clamps were used to close the defect and subsequently transected the defect. The mesentery defect was then closed with 3-0 Vicryl. The anastomosis was inspected and no abnormalities were noted. Proximal to this anastomosis, by about 40 cm or so, the small bowel was brought through the defect. The fascia was then closed with #1 blunt Vicryl in a running fashion. The skin and subcutaneous tissues were closed. Due to the gross contamination, this would not be closed and will be closed with delayed primary closure. A wound VAC was then created by using black sponge, tincture of benzoin and the classic overlay attached and brought to suction. The loop ileostomy was then created in conjunction with a red rubber catheter bar. The ostomy was matured using 3-0 Vicryl and had no evidence of dusky or poor vascularity. The patient tolerated the procedure well. Capo Franco MD /[id number]
[2017-11-01] MEDS: Levofloxacin/Dextrose 5%-Water 500 MG in Premix Bag 1 BAG IV SCH (11:05)
--- NOTE | 2017-11-01 12:14 | OR ---
DATE OF PROCEDURE: 11/01/2017 PROCEDURE: TAP block, bilateral. RISKS: Risks, benefits, alternatives, and limitations including, but not limited to infection, bleeding, lidocaine toxicity, allergic reactions, and others not listed here were explained to the patient, who wished to proceed. PREOPERATIVE DIAGNOSIS: Diverticulitis. POSTOPERATIVE DIAGNOSIS: Diverticulitis. PROCEDURE IN DETAIL: The patient was placed in the supine position. The abdomen was prepped and draped. With the assistance of the power lineman technician, the transversus abdominis plane was readily identified. A chest injection was used through the needle under direct guidance. This was also drawn back and no intravascular injection was noted. Approximately, 80% of the TAP solution was injected on the right. This was then removed, and the dressings were applied. The same procedure was then performed on the opposite side using the same manner, same fashion, same technique, and in the same sequence. Capo Franco MD /[id number]
[2017-11-01] MEDS: Scopolamine 1.5 MG Transdermal Patch TRDERM SCH (14:13)
[2017-11-01] MEDS: Acetaminophen 325 MG Tab PO PRN (18:17)
[2017-11-02] MEDS: traMADol 50 MG Tab PO SCH ×3 (00:38→08:07)
[2017-11-02] MEDS: Ibuprofen 600 MG Tab PO SCH ×2 (02:27→08:04)
[2017-11-02 07:06] VITALS: BP 141/84
[2017-11-02] MEDS: Sennosides 8.6 MG Tab PO SCH (08:04)
[2017-11-02] MEDS: Losartan 50 MG Tab PO SCH (08:04)
[2017-11-02] MEDS: Pantoprazole 40 MG Tab.CR PO SCH (08:04)
[2017-11-02] MEDS: Bisacodyl 5 MG Tab PO SCH (08:05)
[2017-11-02] MEDS: SCOPOLAMINE PATCH CHECK TOP SCH (08:08)
--- NOTE | 2017-11-02 08:42 | PN ---
DATE OF SERVICE: 11/02/2017 SUBJECTIVE: The patient is doing very well today. Her pain is essentially zero. No nausea, vomiting, shortness of breath, or chest pain. She is tolerating a diet and ostomy output is fine. OBJECTIVE: VITAL SIGNS: Stable. CARDIOVASCULAR: Regular rhythm and rate. RESPIRATORY: Lungs clear to auscultation bilaterally. ABDOMEN: Ostomy functioning well. ASSESSMENT: Status post sigmoid colon resection, small bowel resection. PLAN: The patient will be discharged today. Please see discharge summary for further details. Capo Franco MD /[id number]
--- NOTE | 2017-11-02 08:54 | DISCH ---
DISCHARGE DIAGNOSES: Status post sigmoid colon resection and status post small bowel resection. SUMMARY OF HOSPITAL COURSE: This is a very pleasant 67-year-old female who underwent a sigmoid colon and small-bowel resection due to a probable Meckel's diverticulum and a sigmoid colon abscess. The patient was treated with epidural and TAP blocks. Pain has remained well controlled throughout the entire hospitalization. Prior to discharge, her pain was well controlled. She had no nausea, vomiting, shortness of breath, or chest pain. The patient was ambulating in the hallway. FOLLOWUP: Follow up with Surgery in 7-14 days. DISCHARGE MEDICATIONS: Please see MAR, but essentially the same medications as admission with the addition of levofloxacin to address the abscess and [place] for pain. ACTIVITY: No activity. No lifting greater than 30 pounds x30 days.
== END 2017-11-02 10:38 | disposition home or self-care (01) | DRG 330 ==
LOC: JP.ED 12:43 → UNDOADMOB 18:09 → JP.MS 18:09 → JP.ED 18:47 → OBSVTOIN 20:00 → JP.MS 20:00 → INTOOBSV 20:00
PROVIDERS: ADMIT Surgery; ATTEND Surgery
PROC: 0DBN0ZX Excision of Sigmoid Colon, Open Approach, Diagnostic (ICD-10-PCS; principal; 2017-10-29)
PROC: 0D1B0Z4 Bypass Ileum to Cutaneous, Open Approach (ICD-10-PCS; 2017-10-29)
PROC: 0DNE0ZZ Release Large Intestine, Open Approach (ICD-10-PCS; 2017-10-29)
PROC: 0DBN0ZX Excision of Sigmoid Colon, Open Approach, Diagnostic (ICD-10-PCS; 2017-10-29)
PROC: 0DBB0ZX Excision of Ileum, Open Approach, Diagnostic (ICD-10-PCS; 2017-10-29)
PROC: 0D9W0ZX Drainage of Peritoneum, Open Approach, Diagnostic (ICD-10-PCS; 2017-10-29)
PROC: 0WQF0ZZ Repair Abdominal Wall, Open Approach (ICD-10-PCS; 2017-11-01)
PROC: 3E0T3BZ Introduction of Anesthetic Agent into Peripheral Nerves and Plexi, Percutaneous Approach (ICD-10-PCS; 2017-11-01)
DX: K57.20 Diverticulitis of large intestine with perforation and abscess without bleeding (principal); Q43.0 Meckel's diverticulum (displaced) (hypertrophic); R10.30 Lower abdominal pain, unspecified; Z48.1 Encounter for planned postprocedural wound closure; I10 Essential (primary) hypertension
CPT/HCPCS: 36415; 74177 ×2; 80053; 81001; 85025; 96374; 99285; J7030; 74018; 74018-26; 80048; 87070; 87075; 87077; 87186; 87205; 88304; 88307; 93005; 94640; 94762; 97162-GP; 97530-GP; 97605; A9270-GY; J0171; J0330; J1100; J1650; J1956; J2250; J2405; J2543; J2704; J2710; J2765; J2795; J3010; J7042; J7050; J7120; J7620

== ENCOUNTER 2017-11-02 16:47 | Emergency (ER) | payer MEDICARE, OTHER ==
[2017-11-02 17:28] VITALS: BP 145/73
--- NOTE | 2017-11-02 18:10 | EDM.PDOC ---
<Ghazala Caraballo - Last Filed: 11/02/17 18:52> ED HPI GENERAL MEDICAL PROBLEM - General Chief Complaint: Wound Recheck Stated Complaint: HAD SURGERY TODAY, BAG LEAKING Time Seen by Provider: 11/02/17 17:50 Source of Information: Reports: Patient, Family History Limitations: Reports: No Limitations - History of Present Illness INITIAL COMMENTS - FREE TEXT/NARRATIVE: 67 year old pt of Dr. Franco is here s/p surgical procedure concerned with leaking colostomy bag with contents contaminating abdominal wound dressing Onset: Today, Sudden Onset Date: 11/02/17 Onset Time: 12:00 Duration: Hour(s): Location: Reports: Abdomen Quality: Reports: Other (denies pain - worried about infection) Severity: Mild Improves with: Reports: Other (needs dressing change. called clinic and did not receive direction so came to ER) Context: Reports: Other (pt had "blowout" of colostomy bag with bm getting under dressing causing concern) Associated Symptoms: Reports: No Other Symptoms - Related Data Allergies Allergy/AdvReac Type Severity Reaction Status Date / Time No Known Allergies Allergy Verified 11/02/17 18:37 Home Meds: Home Meds Cholecalciferol (Vitamin D3) [Vitamin D3] 2,000 unit PO DAILY 01/14/16 [History] Cyanocobalamin (Vitamin B-12) [Vitamin B-12] 2,000 mcg PO DAILY 01/14/16 [ History] Losartan [Cozaar] 50 mg PO DAILY 01/14/16 [History] [place]-3 Fatty Acids/Fish Oil [Fish Oil 1,000 mg Softgel] 1 each PO DAILY [History] Past Medical History Cardiovascular History: Reports: Hypertension Gastrointestinal History: Reports: Diverticulosis, Other (See Below) Other Gastrointestinal History: intestine abcess 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: Musculoskeletal History: Reports: Back Pain, Chronic Dermatologic History: Reports: None - Infectious Disease History Infectious Disease History: Reports: None - Past Surgical History Cardiovascular Surgical History: Reports: None GI Surgical History: Reports: Cholecystectomy, Colon, Colonoscopy Other GI Surgeries/Procedures: colostomy Social & Family History - Family History Family Medical History: Noncontributory Cardiac: Reports: Heart Failure, Heart Valve Replacement, Hypertension Oncologic: Reports: Lung, Prostate - Tobacco Use Smoking Status *Q: Current Every Day Smoker Years of Tobacco use: 40 Packs/Tins Daily: 0.5 - Caffeine Use Caffeine Use: Reports: Coffee - Recreational Drug Use Recreational Drug Use: No ED ROS GENERAL - Review of Systems Review Of Systems: See Below Constitutional: Reports: No Symptoms GI/Abdominal: Reports: Other (abdominal incision closed with jen intact without signs or symptoms of infection - recent colostomy ). Denies: Abdominal Pain : Reports: No Symptoms Skin: Reports: No Symptoms, Wound, Other (abdominal incision and colostomy as described above). Denies: Pruritis, Erythema Free Text/Narrative/Comment: pt concern for potential infection and prefers dressing be changed ED EXAM, GENERAL - Physical Exam Exam: See Below Free Text/Narrative:: Dressing removed from abdomen. Upon inspection incision is clean, well approximated and closed with jen. no redness or erythema. There is mild serosanguineous drainage without no ordor. Concern for contamination with stool from the "blowout" of the colostomy bag. Incision will be cleaned and a new dressing will be applied Exam Limited By: No Limitations General Appearance: Alert, WD/WN, No Apparent Distress GI/Abdominal: Normal Bowel Sounds, Soft, Non-Tender Neurological: Alert, Oriented Psychiatric: Normal Affect, Normal Mood Skin Exam: Warm, Intact, Normal Color, No Rash, Wound/Incision. No: Erythema Course - Vital Signs Last Recorded V/S: Last Vital Signs Temp 97.2 F 11/02/17 17:32 Pulse 80 11/02/17 17:32 Resp 16 11/02/17 17:32 BP 145/73 H 11/02/17 17:32 Pulse Ox 97 11/02/17 17:32 Departure - Departure Time of Disposition: 18:38 Disposition: Home, Self-Care 01 Condition: Good Clinical Impression: Encounter for wound care, Status post colon resection - Discharge Information *PRESCRIPTION DRUG MONITORING PROGRAM REVIEWED*: No Instructions: Wound Care, Adult Referrals: Eloise Carcamo MD [Primary Care Provider] - Forms: ED Department Discharge Additional Instructions: Keep dressing in place and care for dressing as directed by Dr. Franco. Call or return to ER if further problems or questions. Follow up with providers as previously set up post surgical procedure. Care Plan Goals: Dressing changed due to patient concern of fecal contamination after "blowout" of new colostomy. Reassured patient and patient significant other the incision is without signs of infection. Colostomy appliance changed as well due to leaking appliance after earlier problem. Followup with providers as previously set up. Return to ED if further problems or concerns as necessary. - Problem List & Annotations (1) Status post colon resection SNOMED Code(s): 016166462, 34180997, 76430328, 211658599 Code(s): Z90.49 - ACQUIRED ABSENCE OF OTHER SPECIFIED PARTS OF DIGESTIVE TRACT Status: Acute (2) Encounter for wound care SNOMED Code(s): 815002718, 484545920 Code(s): Z51.89 - ENCOUNTER FOR OTHER SPECIFIED AFTERCARE Status: Acute <Raz Swan - Last Filed: 11/03/17 11:17> Course - Re-Assessments/Exams Free Text/Narrative Re-Assessment/Exam: 11/03/17 11:16 History, exam and treatment provided by Jenna Caraballo reviewed, agreed
== END 2017-11-02 18:44 | disposition home or self-care (01) ==
LOC: JP.ED 16:47
DX: Z43.3 Encounter for attention to colostomy (principal); F17.210 Nicotine dependence, cigarettes, uncomplicated; I10 Essential (primary) hypertension; Z90.49 Acquired absence of other specified parts of digestive tract; Z79.899 Other long term (current) drug therapy
CPT/HCPCS: 99283

== ENCOUNTER 2017-11-06 13:53 | Emergency (ER) | payer MEDICARE, OTHER ==
--- NOTE | 2017-11-06 14:49 | EDM.PDOC ---
ED HPI GENERAL MEDICAL PROBLEM - General Chief Complaint: General Stated Complaint: SURGERY ON OCTOBER 29 FEVER Time Seen by Provider: 11/06/17 14:48 Source of Information: Reports: Patient History Limitations: Reports: No Limitations - History of Present Illness INITIAL COMMENTS - FREE TEXT/NARRATIVE: Pt had surgery on October 29 and she had a abcess from a diverticulitis at that time. She is now spiking fevers and jonna is is feeling ill. She does have aome drainage from the wound. Onset: Gradual Duration: Day(s): Location: Reports: Abdomen Associated Symptoms: Reports: Fever/Chills, Malaise abdominal Pain Score (Numeric/FACES): 2 - Related Data Allergies Allergy/AdvReac Type Severity Reaction Status Date / Time No Known Allergies Allergy Verified 11/06/17 14:12 Home Meds: Home Meds Cholecalciferol (Vitamin D3) [Vitamin D3] 2,000 unit PO DAILY 01/14/16 [History] Cyanocobalamin (Vitamin B-12) [Vitamin B-12] 2,000 mcg PO DAILY 01/14/16 [ History] Losartan [Cozaar] 50 mg PO DAILY 01/14/16 [History] [place]-3 Fatty Acids/Fish Oil [Fish Oil 1,000 mg Softgel] 1 each PO DAILY [History] levoFLOXacin [Levaquin] 500 mg PO DAILY 11/06/17 [History] Past Medical History Cardiovascular History: Reports: Hypertension Gastrointestinal History: Reports: Diverticulosis, Other (See Below) Other Gastrointestinal History: 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: Musculoskeletal History: Reports: Back Pain, Chronic Dermatologic History: Reports: None - Infectious Disease History Infectious Disease History: Reports: None - Past Surgical History Cardiovascular Surgical History: Reports: None GI Surgical History: Reports: Cholecystectomy, Colon, Colonoscopy Social & Family History - Family History Family Medical History: Noncontributory Cardiac: Reports: Heart Failure, Heart Valve Replacement, Hypertension Oncologic: Reports: Lung, Prostate - Tobacco Use Smoking Status *Q: Current Every Day Smoker Years of Tobacco use: 30 Packs/Tins Daily: 0.5 - Caffeine Use Caffeine Use: Reports: Coffee - Recreational Drug Use Recreational Drug Use: No ED ROS GENERAL - Review of Systems Review Of Systems: See Below Constitutional: Reports: Fever, Chills, Malaise HEENT: Reports: No Symptoms Respiratory: Reports: No Symptoms Cardiovascular: Reports: No Symptoms Endocrine: Reports: No Symptoms GI/Abdominal: Reports: Other (pt has a fever and has a red wound which she has drainage from. ) : Reports: No Symptoms Musculoskeletal: Reports: No Symptoms Skin: Reports: No Symptoms Neurological: Reports: No Symptoms ED EXAM, GENERAL - Physical Exam Exam: See Below Free Text/Narrative:: pt arrived with pain in her lower back and abdoman and it is radiating down her legs. She has a very inflamed appearing wound. Exam Limited By: No Limitations General Appearance: Alert, Anxious, Moderate Distress Ears: Normal TMs Nose: Normal Inspection Throat/Mouth: Normal Inspection Head: Atraumatic Neck: Normal Inspection Respiratory/Chest: No Respiratory Distress Cardiovascular: Regular Rate, Rhythm GI/Abdominal: Guarding, Tender, Other (pt has marked tenderness in the lower abdoman. She describes pain going down her legs. ) (Female) Exam: Deferred Rectal (Female) Exam: Deferred Extremities: Normal Inspection Neurological: Alert, Oriented, Normal Cognition Psychiatric: Normal Affect, Anxious Course - Vital Signs Last Recorded V/S: Last Vital Signs Temp 36.4 C 11/06/17 20:11 Pulse 81 11/06/17 20:11 Resp 16 11/06/17 20:11 BP 129/67 11/06/17 20:11 Pulse Ox 97 11/06/17 20:11 - Orders/Labs/Meds Labs: Laboratory Tests 11/06/17 11/06/17 11/06/17 Range/Units 14:55 14:55 14:55 WBC 18.4 H (4.5-11.0) K/uL RBC 3.72 (3.30-5.50) M/uL Hgb 11.3 L (12.0-15.0) g/dL Hct 35.1 L (36.0-48.0) % MCV 94 (80-98) fL MCH 30 (27-31) pg MCHC 32 (32-36) % Plt Count 569 H (150-400) K/uL Neut % (Auto) 74 H (36-66) % Lymph % (Auto) 12 L (24-44) % [place] % (Auto) 13 H (2-6) % Eos % (Auto) 1 L (2-4) % Baso % (Auto) 0 (0-1) % Sodium 136 L (140-148) mmol/L Potassium 3.7 (3.6-5.2) mmol/L Chloride 97 L (100-108) mmol/L Carbon Dioxide 31 (21-32) mmol/L Anion Gap 11.7 (5.0-14.0) mmol/L BUN 11 (7-18) mg/dL Creatinine 1.0 (0.6-1.0) mg/dL Est Cr Clr Drug Dosing 49.12 mL/min Estimated GFR (MDRD) 55 L (>60) Glucose 92 (74-106) mg/dL Calcium 8.8 (8.5-10.1) mg/dL Total Bilirubin 0.4 (0.2-1.0) mg/dL AST 16 (15-37) U/L ALT 23 (12-78) U/L Alkaline Phosphatase 79 (46-116) U/L C-Reactive Protein 18.51 H (0.0-0.3) mg/dL Total Protein 6.5 (6.4-8.2) g/dL Albumin 2.0 L (3.4-5.0) g/dL Globulin 4.5 H (2.3-3.5) g/dL Albumin/Globulin Ratio 0.4 L (1.2-2.2) Meds: Medications Discontinued Medications Generic Name Dose Route Start Last Admin Trade Name Freq PRN Reason Stop Dose Admin Hydromorphone HCl 0.5 mg 11/06/17 15:09 11/06/17 15:18 Dilaudid IVPUSH 11/06/17 15:10 0.5 mg ONETIME ONE Administration Hydromorphone HCl 0.5 mg 11/06/17 17:18 11/06/17 17:26 Dilaudid IVPUSH 11/06/17 17:19 0.5 mg ONETIME ONE Administration Hydromorphone HCl 0.5 mg 11/06/17 19:23 11/06/17 19:56 Dilaudid IVPUSH 11/06/17 19:24 0.5 mg ONETIME ONE Administration Sodium Chloride 1,000 mls @ 999 mls/hr 11/06/17 15:00 11/06/17 16:15 Normal Saline IV 999 mls/hr ASDIRECTED MARLEN Administration Sodium Chloride 100 mls @ 3 mls/sec 11/06/17 16:00 11/06/17 16:14 Normal Saline IV 3 mls/sec ASDIRECTED MARLEN Administration Sodium Chloride 1,000 mls @ 999 mls/hr 11/06/17 17:30 Normal Saline IV ASDIRECTED MARLEN Piperacillin Sod/Tazobactam 50 mls @ 100 mls/hr 11/06/17 17:30 11/06/17 18:32 Sod 3.375 gm/ Sodium Chloride IV 100 mls/hr Q6H MARLEN Administration Iopamidol 150 ml 11/06/17 16:00 11/06/17 16:14 Isovue-300 (61%) IV 150 ml . DIRECTED MARLEN Administration Ondansetron HCl 4 mg 11/06/17 17:18 11/06/17 17:23 Zofran IVPUSH 11/06/17 17:19 4 mg ONETIME ONE Administration - Re-Assessments/Exams Free Text/Narrative Re-Assessment/Exam: 11/06/17 17:20 pt has a elevated wbc and crp. A cat scan of the abdoman was obtained which showed post op ileus changeas, A fluid collection in the left lower abdoman 4.6x2.5. -- this could represent a abcess. 11/06/17 19:07 Dr Franco is now coming to see the pt . Departure - Departure Time of Disposition: 20:15 Disposition: DC/Tfer to Acute Hospital 02 Condition: Fair Clinical Impression: Abscess of wound following procedure, Abdominal abscess - Discharge Information Referrals: Capo Franco MD [Primary Care Provider] - Forms: ED Department Discharge Care Plan Goals: Dr Franco DID COME IN AND SEE PT AND THE WOUND WAS OPENED AND SHE WAS TRANSFERED TO [facility].
[2017-11-06] MEDS ORDERED: HYDROmorphone 0.5 MG/0.5 ML Syringe IVPUSH ONE ×3 (15:09→19:23)
[2017-11-06] MEDS: Sodium Chloride 0.9% 1,000 ML IV SCH ×2 (15:13→16:15)
[2017-11-06] MEDS ORDERED: Iopamidol 612 MG/ML 150 ML Bottle IV SCH (16:00)
[2017-11-06] MEDS ORDERED: Sodium Chloride 0.9% 100 ML IV SCH (16:00)
[2017-11-06] MEDS ORDERED: Ondansetron 4 MG/2 ML SDV IVPUSH ONE (17:18)
[2017-11-06] MEDS ORDERED: Sodium Chloride 0.9% 1,000 ML IV SCH (17:30)
[2017-11-06] MEDS ORDERED: Piperacillin/Tazobactam 3.375 GM in Sodium Chloride 0.9% 50 ML IV SCH (17:30)
[2017-11-06 20:38] VITALS: BP 129/67
--- NOTE | 2017-11-08 08:27 | PN ---
DATE OF SERVICE: 11/06/2017 The patient was seen in the emergency room tonight. She underwent a CT scan, which showed an abscess. I did arrange then for the patient to be transferred to [place] for Interventional Radiology to intervene with this. In addition, the abdominal wound, the inferior approximately 2 cm was opened and cultured for potential infection. This was thoroughly irrigated and packed with 1 inch iodoform gauze and left open. Aside from this, the patient is doing quite well. We will await results of the Interventional Radiology procedure. Capo Franco MD /[id number]
== END 2017-11-06 21:43 ==
LOC: JP.ED 13:53
DX: T81.4XXA Infection following a procedure, initial encounter (principal); L02.211 Cutaneous abscess of abdominal wall; F17.210 Nicotine dependence, cigarettes, uncomplicated; I10 Essential (primary) hypertension; Y83.9 Surgical procedure, unspecified as the cause of abnormal reaction of the patient, or of later complication, without mention of misadventure at the time of the procedure
CPT/HCPCS: 36415; 74177; 80053; 85025; 86140; 87040; 87070; 87077; 87205; 96361; 96365; 96375; 96376; 99285; J1170; J2405; J2543; J7030; J7050

== ENCOUNTER 2017-12-14 20:42 | Emergency (ER) | payer MEDICARE, OTHER ==
[2017-12-14 21:17] VITALS: BP 114/76
[2017-12-14] MEDS ORDERED: Ondansetron 4 MG/2 ML SDV IVPUSH ONE (22:13)
[2017-12-14] MEDS ORDERED: Sodium Chloride 0.9% 10 ML Syringe FLUSH PRN (22:13)
--- NOTE | 2017-12-14 22:15 | EDM.PDOC ---
ED HPI GENERAL MEDICAL PROBLEM - General Chief Complaint: General Stated Complaint: NEED FLUIDS Time Seen by Provider: 12/14/17 21:27 Source of Information: Reports: Patient, Family, Old Records, RN Notes Reviewed History Limitations: Reports: No Limitations - History of Present Illness INITIAL COMMENTS - FREE TEXT/NARRATIVE: 67-year-old female presents to the emergency department day complaint of feeling poorly in dehydrated, she recently had an ileostomy placed about 6 weeks ago has had difficulty with output from the elbow miles to me pending up being dehydrated needing fluids every few days. She also feels nauseated otherwise no fevers vomiting shortness of breath or chest pain - Related Data Allergies Allergy/AdvReac Type Severity Reaction Status Date / Time No Known Allergies Allergy Verified 12/14/17 21:55 Home Meds: Home Meds Cholestyramine/Sucrose [Cholestyramine] 1 packet PO BID 11/24/17 [History] Methylcellulose (with Sugar) [Soluble Fiber Therapy Powder] 454 gm PO DAILY 05/13 [History] Ondansetron [Zofran ODT] 4 mg PO Q8H PRN 11/24/17 [History] Past Medical History HEENT History: Reports: Impaired Vision Cardiovascular History: Reports: Hypertension Gastrointestinal History: Reports: Diverticulosis, Other (See Below) Other Gastrointestinal History: 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 abcess 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: Musculoskeletal History: Reports: Back Pain, Chronic - Infectious Disease History Infectious Disease History: Reports: Chicken Pox - Past Surgical History Cardiovascular Surgical History: Reports: None GI Surgical History: Reports: Cholecystectomy, Colon, Colonoscopy, Other (See Below) Other GI Surgeries/Procedures: ileostomy Social & Family History - Family History Family Medical History: Noncontributory Cardiac: Reports: Heart Failure, Heart Valve Replacement, Hypertension Oncologic: Reports: Lung, Prostate - Tobacco Use Smoking Status *Q: Never Smoker - Caffeine Use Caffeine Use: Reports: None - Recreational Drug Use Recreational Drug Use: No ED ROS GENERAL - Review of Systems Review Of Systems: See Below Constitutional: Reports: Weakness, Fatigue. Denies: Fever HEENT: Reports: No Symptoms Respiratory: Reports: No Symptoms Cardiovascular: Reports: No Symptoms GI/Abdominal: Reports: Nausea : Reports: No Symptoms ED EXAM, GENERAL - Physical Exam Exam: See Below Exam Limited By: No Limitations General Appearance: Alert, WD/WN, No Apparent Distress Respiratory/Chest: No Respiratory Distress, Lungs Clear, Normal Breath Sounds, No Accessory Muscle Use, Chest Non-Tender Cardiovascular: Regular Rate, Rhythm, No Murmur GI/Abdominal: Soft, Other (Surgical wound is clean dry and intact ileostomy is functioning) Course - Vital Signs Last Recorded V/S: Last Vital Signs Temp 98.6 F 12/14/17 21:54 Pulse 117 H 12/14/17 21:54 Resp 16 12/14/17 21:54 BP 114/76 12/14/17 21:54 Pulse Ox 97 12/14/17 21:54 - Orders/Labs/Meds Orders: Active Orders 24 hr Category Date Time Status Peripheral IV Care [RC] . DIRECTED Care 12/14/17 22:13 Active UA W/MICROSCOPIC [URIN] Urgent Lab 12/15/17 00:31 Ordered Sodium Chloride 0.9% [Saline Flush] Med 12/14/17 22:13 Active 10 ml FLUSH ASDIRECTED PRN Peripheral IV Insertion Adult [OM.PC] Urgent Oth 12/14/17 22:13 Ordered Medication Orders Sodium Chloride (Saline Flush) 10 ml FLUSH ASDIRECTED PRN PRN Reason: Keep Vein Open Last Admin: 12/14/17 22:27 Dose: 10 ml Labs: Laboratory Tests 12/14/17 12/14/17 12/14/17 Range/Units 22:13 22:13 22:13 WBC 15.3 H (4.5-11.0) K/uL RBC 4.48 (3.30-5.50) M/uL Hgb 13.5 (12.0-15.0) g/dL Hct 40.1 (36.0-48.0) % MCV 90 (80-98) fL MCH 30 (27-31) pg MCHC 34 (32-36) % Plt Count 537 H (150-400) K/uL Neut % (Auto) 68 H (36-66) % Lymph % (Auto) 20 L (24-44) % [place] % (Auto) 10 H (2-6) % Eos % (Auto) 2 (2-4) % Baso % (Auto) 0 (0-1) % Sodium 130 L (140-148) mmol/L Potassium 4.6 (3.6-5.2) mmol/L Chloride 92 L (100-108) mmol/L Carbon Dioxide 26 (21-32) mmol/L Anion Gap 16.6 H (5.0-14.0) mmol/L BUN 35 H (7-18) mg/dL Creatinine 1.8 H (0.6-1.0) mg/dL Est Cr Clr Drug Dosing 27.29 mL/min Estimated GFR (MDRD) 28 L (>60) Glucose 127 H (74-106) mg/dL Lactic Acid 2.4 H (0.4-2.0) mmol/L Calcium 10.1 (8.5-10.1) mg/dL Urine Color Urine Appearance Urine pH (4.5-8.0) Ur Specific [place] (1.008-1.030) Urine Protein (NEGATIVE) mg/dL Urine Glucose (UA) (NEGATIVE) mg/dL Urine Ketones (NEGATIVE) mg/dL Urine Occult Blood (NEGATIVE) Urine Nitrite (NEGATIVE) Urine Bilirubin (NEGATIVE) Urine Urobilinogen (NORMAL) mg/dL Ur Leukocyte Esterase (NEGATIVE) Urine RBC (0-5) Urine WBC (0-5) Ur Epithelial Cells Amorphous Sediment Urine Bacteria Urine Mucus 12/15/17 Range/Units 00:31 WBC (4.5-11.0) K/uL RBC (3.30-5.50) M/uL Hgb (12.0-15.0) g/dL Hct (36.0-48.0) % MCV (80-98) fL MCH (27-31) pg MCHC (32-36) % Plt Count (150-400) K/uL Neut % (Auto) (36-66) % Lymph % (Auto) (24-44) % [place] % (Auto) (2-6) % Eos % (Auto) (2-4) % Baso % (Auto) (0-1) % Sodium (140-148) mmol/L Potassium (3.6-5.2) mmol/L Chloride (100-108) mmol/L Carbon Dioxide (21-32) mmol/L Anion Gap (5.0-14.0) mmol/L BUN (7-18) mg/dL Creatinine (0.6-1.0) mg/dL Est Cr Clr Drug Dosing mL/min Estimated GFR (MDRD) (>60) Glucose (74-106) mg/dL Lactic Acid (0.4-2.0) mmol/L Calcium (8.5-10.1) mg/dL Urine Color Yellow Urine Appearance Slightly cloudy Urine pH 5.0 (4.5-8.0) Ur Specific [place] 1.020 (1.008-1.030) Urine Protein Negative (NEGATIVE) mg/dL Urine Glucose (UA) Normal (NEGATIVE) mg/dL Urine Ketones Negative (NEGATIVE) mg/dL Urine Occult Blood Negative (NEGATIVE) Urine Nitrite Negative (NEGATIVE) Urine Bilirubin Negative (NEGATIVE) Urine Urobilinogen Normal (NORMAL) mg/dL Ur Leukocyte Esterase Moderate (NEGATIVE) Urine RBC 5-10 H (0-5) Urine WBC 5-10 H (0-5) Ur Epithelial Cells Moderate Amorphous Sediment Not seen Urine Bacteria Moderate Urine Mucus Not seen Meds: Medications Generic Name Dose Route Start Last Admin Trade Name Freq PRN Reason Stop Dose Admin Sodium Chloride 10 ml 12/14/17 22:13 12/14/17 22:27 Saline Flush FLUSH 10 ml ASDIRECTED PRN Administration Keep Vein Open Discontinued Medications Generic Name Dose Route Start Last Admin Trade Name Freq PRN Reason Stop Dose Admin Lactated Ringer's 2,000 mls @ 999 mls/hr 12/14/17 22:13 12/14/17 23:30 Ringers, Lactated IV 12/15/17 00:13 999 mls/hr BOLUS ONE Administration Ondansetron HCl 4 mg 12/14/17 22:13 12/14/17 22:27 Zofran IVPUSH 12/14/17 22:14 4 mg ONETIME ONE Administration Departure - Departure Time of Disposition: 01:09 Disposition: Home, Self-Care 01 Condition: Fair Clinical Impression: Dehydration - Discharge Information Referrals: Eloise Carcamo MD [Primary Care Provider] - Forms: ED Department Discharge Additional Instructions: Try the Compazine 1 tablet every 6 hours as needed for nausea symptoms which may improve your overall intake, please keep your follow-up appointment with general surgery on , call or return to the emergency department with worsening of symptoms - My Orders Last 24 Hours: My Active Orders 12/14/17 22:13 Peripheral IV Care [RC] . DIRECTED Sodium Chloride 0.9% [Saline Flush] 10 ml FLUSH ASDIRECTED PRN Peripheral IV Insertion Adult [OM.PC] Urgent 12/15/17 00:31 UA W/MICROSCOPIC [URIN] Urgent - Assessment/Plan Last 24 Hours: My Active Orders 12/14/17 22:13 Peripheral IV Care [RC] . DIRECTED Sodium Chloride 0.9% [Saline Flush] 10 ml FLUSH ASDIRECTED PRN Peripheral IV Insertion Adult [OM.PC] Urgent 12/15/17 00:31 UA W/MICROSCOPIC [URIN] Urgent Plan: Assessment Acuity = acute Site and laterality = intravascular volume depletion complicated in a patient with a high output ileostomy Etiology = probably related to poor ability to keep up on fluids Manifestations = weakness Location of injury = Home Lab values = WBC elevated 15.3 consistent with leukocytosis platelets elevated at 537 consistent with thrombocytosis sodium low at 1:30 consistent with hyponatremia creatinine elevated 1.8 consistent with chronic renal failure stage G4 lactic acid elevated at 2.8 consistent lactic acidosis urinalysis reveals 5-10 rbc's consistent with a hematuria and 5-10 wbc's consists with pyuria specific gravity is 1.02 consistent with dehydration Plan She had some improvement with 2 L of lactated Ringer's she has a follow-up appointment with general surgery on of this week, she is going to try Compazine for her nausea which may improve her ability to keep up on oral intake This note was dictated using [employer] voice recognition software please call with any questions on syntax or grammar.
[2017-12-14] MEDS: Lactated Ringers 2,000 ML IV ONE ×2 (22:26→23:30)
== END 2017-12-15 01:15 | disposition home or self-care (01) ==
LOC: JP.ED 20:42
DX: E86.0 Dehydration (principal); I10 Essential (primary) hypertension; Z79.899 Other long term (current) drug therapy
CPT/HCPCS: 36415; 80048; 81001; 83605; 85025; 96360; 96361; 99284; J2405; J7050; J7120

== ENCOUNTER 2018-01-23 15:19 | Emergency (ER) | payer MEDICARE, OTHER ==
[2018-01-23 15:35] VITALS: BP 125/104
[2018-01-23] MEDS ORDERED: Sodium Chloride 0.9% 1,000 ML IV SCH (16:15)
--- NOTE | 2018-01-23 16:30 | EDM.PDOC ---
ED HPI GENERAL MEDICAL PROBLEM - General Chief Complaint: General Stated Complaint: DEHYDRATED Time Seen by Provider: 01/23/18 15:50 Source of Information: Reports: Patient, Family History Limitations: Reports: No Limitations - History of Present Illness INITIAL COMMENTS - FREE TEXT/NARRATIVE: 67-year-old female who feels lightheaded, hypotensive, and dehydrated after an increase in secretory diarrhea into her colostomy over the past several days. She's also had a cold and a cough which has been persistent. No fever or chills. She went into the clinic a few days ago to get antibiotics and was very disappointed she wasn't treated. A small amount of productive sputum. She is a nonsmoker. She was treated with IV fluids a month ago for similar symptoms and responded well. Onset: Gradual (Over the past several days) Severity: Moderate Associated Symptoms: Reports: Cough, Malaise, Shortness of Breath, Weakness. Denies: Fever/Chills, Nausea/Vomiting - Related Data Allergies Allergy/AdvReac Type Severity Reaction Status Date / Time No Known Allergies Allergy Verified 12/14/17 21:55 Home Meds: Home Meds Albuterol [Ventolin HFA] 1 puff IN ASDIRECTED 01/23/18 [History] Benzonatate 100 mg PO TID 01/23/18 [History] Diphenoxylate HCl/Atropine [Diphenoxylate-Atrop 2.5-0.025] 1 tab PO QID [History] Loperamide HCl [Loperamide] 2 mg PO ASDIRECTED PRN 01/23/18 [History] Past Medical History HEENT History: Reports: Impaired Vision Cardiovascular History: Reports: Hypertension Gastrointestinal History: Reports: Diverticulosis, Other (See Below) Other Gastrointestinal History: intestine 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: Musculoskeletal History: Reports: Back Pain, Chronic Dermatologic History: Reports: None - Infectious Disease History Infectious Disease History: Reports: Chicken Pox - Past Surgical History Cardiovascular Surgical History: Reports: None GI Surgical History: Reports: Cholecystectomy, Colon, Colonoscopy, Other (See Below) Other GI Surgeries/Procedures: ileostomy Social & Family History - Family History Family Medical History: Noncontributory Cardiac: Reports: Heart Failure, Heart Valve Replacement, Hypertension Oncologic: Reports: Lung, Prostate - Tobacco Use Smoking Status *Q: Never Smoker - Caffeine Use Caffeine Use: Reports: Coffee - Recreational Drug Use Recreational Drug Use: No ED ROS GENERAL - Review of Systems Review Of Systems: See Below Constitutional: Reports: Malaise, Weakness. Denies: Fever, Chills HEENT: Denies: Throat Pain Respiratory: Reports: Shortness of Breath, Cough Cardiovascular: Denies: Chest Pain GI/Abdominal: Reports: Diarrhea. Denies: Abdominal Pain, Hematemesis, Hematochezia, Nausea Skin: Reports: No Symptoms Neurological: Reports: Dizziness, Weakness ED EXAM, GENERAL - Physical Exam Exam: See Below Exam Limited By: No Limitations General Appearance: Alert, No Apparent Distress Throat/Mouth: Normal Inspection Head: Atraumatic Respiratory/Chest: No Respiratory Distress, Rales (Patient does have basilar rales bilaterally and a few scattered rhonchi and wheezes) Cardiovascular: Regular Rate, Rhythm, Tachycardia GI/Abdominal: Normal Bowel Sounds, Other (No erythema around abdominal wounds or colostomy) Neurological: Alert, Oriented Psychiatric: Normal Affect, Normal Mood Skin Exam: Warm, Dry Course - Vital Signs Last Recorded V/S: Last Vital Signs Temp 97.0 F 01/23/18 15:45 Pulse 106 H 01/23/18 15:45 Resp 16 01/23/18 15:45 BP 125/104 H 01/23/18 15:45 Pulse Ox 97 01/23/18 15:45 - Orders/Labs/Meds Labs: Laboratory Tests 01/23/18 01/23/18 Range/Units 16:17 16:17 WBC 14.0 H (4.5-11.0) K/uL RBC 4.30 (3.30-5.50) M/uL Hgb 13.1 (12.0-15.0) g/dL Hct 38.9 (36.0-48.0) % MCV 91 (80-98) fL MCH 31 (27-31) pg MCHC 34 (32-36) % Plt Count 487 H (150-400) K/uL Neut % (Auto) 60 (36-66) % Lymph % (Auto) 24 (24-44) % [place] % (Auto) 12 H (2-6) % Eos % (Auto) 3 (2-4) % Baso % (Auto) 1 (0-1) % Sodium 133 L (140-148) mmol/L Potassium 3.6 (3.6-5.2) mmol/L Chloride 93 L (100-108) mmol/L Carbon Dioxide 28 (21-32) mmol/L Anion Gap 15.6 H (5.0-14.0) mmol/L BUN 35 H (7-18) mg/dL Creatinine 1.7 H (0.6-1.0) mg/dL Est Cr Clr Drug Dosing 28.90 mL/min Estimated GFR (MDRD) 30 L (>60) Glucose 96 (74-106) mg/dL Calcium 9.3 (8.5-10.1) mg/dL Meds: Medications Discontinued Medications Generic Name Dose Route Start Last Admin Trade Name Freq PRN Reason Stop Dose Admin Sodium Chloride 1,000 mls @ 1,000 mls/hr 01/23/18 16:15 01/23/18 16:19 Normal Saline IV 1,000 mls/hr ASDIRECTED [facility] Administration - Re-Assessments/Exams Free Text/Narrative Re-Assessment/Exam: 01/23/18 16:29 CBC and BMP were obtained, and 1 L of normal saline was given IV. She was started on a course of Zithromax with the understanding we may be treating a viral illness and it may not work in fact give her side effects. She has tolerated Zithromax well in the past. 01/23/18 17:12 White count 15,000, creatinine 1.8 and GFR 30. These are consistent with readings over the past 2 months, however her kidney function was normal earlier this year. This should be followed up and this was discussed with the patient. Departure - Departure Time of Disposition: 17:42 Disposition: Home, Self-Care 01 Condition: Good Clinical Impression: Bronchitis, Dehydration - Discharge Information Instructions: Dehydration, Adult, [id number] Referrals: Eloise Carcamo MD [Primary Care Provider] - Forms: ED Department Discharge Care Plan Goals: Takes Zithromax as prescribed and continue your other medications. Discuss your kidney function with your primary care provider to consider further evaluation, and continue with aggressive fluid intake.
== END 2018-01-23 17:42 | disposition home or self-care (01) ==
LOC: JP.ED 15:19
DX: E86.0 Dehydration (principal); J40 Bronchitis, not specified as acute or chronic; I10 Essential (primary) hypertension
CPT/HCPCS: 36415; 80048; 85025; 96360; 99283; 99284; J7030

== ENCOUNTER 2018-10-02 00:25 | Emergency (ER) | payer MEDICARE, OTHER ==
[2018-10-02 00:48] VITALS: BP 150/83
--- NOTE | 2018-10-02 01:12 | EDM.PDOC ---
ED HPI GENERAL MEDICAL PROBLEM - General Chief Complaint: General Stated Complaint: CHANGE TUBBING Time Seen by Provider: 10/02/18 00:45 Source of Information: Reports: Patient History Limitations: Reports: No Limitations - History of Present Illness INITIAL COMMENTS - FREE TEXT/NARRATIVE: 60-year-old female who has an abdominal wound VAC from a chronic open incision for the past year. Tonight there was some obstruction either in the tubing or the padding and the wound itself. She called the nurse hotline for suggestions and they recommended coming into the emergency room. She has no fever or chills , increased abdominal pain or distention, no nausea or vomiting. Onset: Unknown/Unsure Associated Symptoms: Reports: No Other Symptoms - Related Data Allergies Allergy/AdvReac Type Severity Reaction Status Date / Time No Known Allergies Allergy Verified 12/14/17 21:55 Home Meds: Home Meds Albuterol [Ventolin HFA] 1 puff IN ASDIRECTED 01/23/18 [History] Benzonatate 100 mg PO TID 01/23/18 [History] Diphenoxylate HCl/Atropine [Diphenoxylate-Atrop 2.5-0.025] 1 tab PO QID [History] Loperamide HCl [Loperamide] 2 mg PO ASDIRECTED PRN 01/23/18 [History] Past Medical History HEENT History: Reports: Impaired Vision Cardiovascular History: Reports: Hypertension Gastrointestinal History: Reports: Diverticulosis, Other (See Below) Other Gastrointestinal History: intestine abcess [employer] History: Reports: Musculoskeletal History: Reports: Back Pain, Chronic Dermatologic History: Reports: None - Infectious Disease History Infectious Disease History: Reports: Chicken Pox - Past Surgical History Cardiovascular Surgical History: Reports: None GI Surgical History: Reports: Cholecystectomy, Colon, Colonoscopy, Other (See Below) Other GI Surgeries/Procedures: ileostomy Social & Family History - Family History Family Medical History: Noncontributory Cardiac: Reports: Heart Failure, Heart Valve Replacement, Hypertension Oncologic: Reports: Lung, Prostate - Tobacco Use Smoking Status *Q: Unknown Ever Smoked - Caffeine Use Caffeine Use: Reports: Coffee ED ROS GENERAL - Review of Systems Review Of Systems: See Below Constitutional: Denies: Fever, Chills HEENT: Denies: Vision Change Cardiovascular: Denies: Chest Pain GI/Abdominal: Denies: Nausea, Vomiting Skin: Reports: No Symptoms Neurological: Reports: No Symptoms ED EXAM, GENERAL - Physical Exam Exam: See Below Exam Limited By: No Limitations General Appearance: Alert, No Apparent Distress Respiratory/Chest: No Respiratory Distress Cardiovascular: Regular Rate, Rhythm GI/Abdominal: Normal Bowel Sounds, Soft, Non-Tender, Other (No erythema of the open wound, no significant drainage other than wound VAC material) Neurological: Alert, Oriented Psychiatric: Normal Affect, Normal Mood Course - Vital Signs Last Recorded V/S: Last Vital Signs Temp 98.1 F 10/02/18 00:49 Pulse 92 10/02/18 00:49 Resp 16 10/02/18 00:49 BP 150/83 H 10/02/18 00:49 Pulse Ox 95 10/02/18 00:49 - Re-Assessments/Exams Free Text/Narrative Re-Assessment/Exam: 10/02/18 01:10 The wound material was removed and re-dressed with new packing, the tubing was also replaced. She can recheck next week if it does not continue to work satisfactorily. She can also return sooner if she develops any other concerns. Departure - Departure Time of Disposition: 01:36 Disposition: Home, Self-Care 01 Clinical Impression: Encounter for management of wound VAC - Discharge Information Instructions: Negative Pressure Wound Therapy Dressing Care Referrals: PCP,None [Primary Care Provider] - Forms: ED Department Discharge Care Plan Goals: Continue your current appointment schedule, or return sooner if you develop issues with the wound VAC or have other concerns.
== END 2018-10-02 01:36 | disposition home or self-care (01) ==
LOC: JP.ED 00:25
DX: Z46.89 Encounter for fitting and adjustment of other specified devices (principal); Z79.899 Other long term (current) drug therapy
CPT/HCPCS: 99282

== ENCOUNTER 2023-07-27 15:35 | Emergency (ER) | payer MEDICARE, OTHER ==
[2023-07-27 15:57] VITALS: BP 167/85; PULSE 73
== END 2023-07-27 18:00 | disposition home or self-care (01) ==
LOC: JP.ED 15:35
DX: I10 Essential (primary) hypertension (principal); Z90.49 Acquired absence of other specified parts of digestive tract; Z87.891 Personal history of nicotine dependence
CPT/HCPCS: 70450; 70450-26; 99283

== ENCOUNTER 2023-08-16 10:35 | Emergency (ER) | payer MEDICARE, OTHER ==
[2023-08-16 12:16] VITALS: BP 165/92; PULSE 72
== END 2023-08-16 12:19 | disposition home or self-care (01) ==
LOC: JP.ED 10:35
DX: I11.0 Hypertensive heart disease with heart failure (principal); F17.200 Nicotine dependence, unspecified, uncomplicated; Z86.19 Personal history of other infectious and parasitic diseases; Z90.49 Acquired absence of other specified parts of digestive tract
CPT/HCPCS: 99283